=== PATIENT | female | born 1990 ===

== ENCOUNTER 2017-06-17 17:17 | Emergency (ER) | payer OTHER ==
[2017-06-17 19:44] LABS: Hematocrit 39 % (35-47); Hemoglobin 13.2 g/dl (12.0-16.0); Mean Corpuscular HGB Conc 34 g/dl (31-36); Mean Corpuscular Hemoglobin 28 pg (27-31); Mean Corpuscular Volume 84 fL (80-97); Mean Platelet Volume 9 um3 (7.4-10.4); Red Blood Count 4.64 10^6/ul (4.0-5.4); Red Cell Distribution Width 13 % (10.5-15); White Blood Count 8.3 10^3/ul (3.5-10.8)
[2017-06-17 20:01] LABS: Albumin 4.4 g/dL (3.2-5.2); BUN/Creatinine Ratio 25.4 (8-20); C Reactive Protein 1.13 mg/L (< 5.00); Calcium 9.6 mg/dL (8.6-10.3); EGFR African American 145.8 (>60); EGFR Non-African American 113.4 (>60); Globulin 3.5 g/dL (2-4); Magnesium 2.3 mg/dL (1.9-2.7); Potassium 3.7 mmol/L (3.5-5.0); Total Bilirubin 0.2 mg/dL (0.2-1.0); Total Protein 7.9 g/dL (6.4-8.9)
[2017-06-17 20:22] LABS: TSH (Thyroid Stimulating Horm) 2.24 mcIU/mL (0.34-5.60)
[2017-06-17] MEDS ORDERED: Ketorolac INJ* 60 MG/2 ML VIAL IM ONE (20:27)
[2017-06-17] MEDS ORDERED: Ketorolac INJ* 30 MG/ML 1 ML VIAL IV PUSH ONE (20:50)
[2017-06-17 20:53] LABS: Manual Entry Verification ABI0007; Mono Internal Control QC Line Present
[2017-06-17 21:01] LABS: Urine Bacteria 1+ (Absent); Urine Bilirubin Negative (Negative); Urine Glucose Negative (Negative); Urine Nitrite Negative (Negative)
--- NOTE | 2017-06-17 21:02 | ED ---
Complex/Multi-Sys Presentation - HPI Summary HPI Summary: Pt here w/ multiple sx. She came in tonight for acute wrist pain that she woke with this morning - Rt > Lt. Worse w/ flexion. Denies numbness, tingling, weakness. Tried 400mg ibuprofen w/o relief. 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 Denies arm pain but does have shoulder, neck, headaches at times. H/o tension SINHA's. Reports she's had new SINHA's this week though- Rt sided sharp pain after exercise (not during). NO HEADACHE AT THIS TIME. She has changed her workout routine - going later at night now - uses eliptical machine and arm extension (pulling and pushing). Eating later at night as well. Has 12oz caffeine daily - sometimes more. Denies ETOH use and no recent dehydration (ie. fever, sweating, diarrhea, vomiting). No tobacco or drug use. Admits to a h/o anemia as she's vegetarian. Reports progressive SOB as well (mild). Denies chest pain, nausea, difficulty eating or swallowing, dysuria, flank pain, vaginal pain/irritation. Denies URI sx. - History Of Current Complaint Chief Complaint: EDExtremityUpper Time Seen by Provider: 06/17/17 17:59 Hx Obtained From: Patient - Allergies/Home Medications Allergies/Adverse Reactions: Allergies Allergy/AdvReac Type Severity Reaction Status Date / Time No Known Allergies Allergy Verified 06/17/17 17:39 PMH/Surg Hx/FS Hx/Imm Hx Previously Healthy: Yes Endocrine/Hematology History: Reports: Hx Anemia Denies: Hx Anticoagulant Therapy, Hx Blood Disorders, Hx Diabetes, Hx Thyroid Disease, Autoimmune Disease Cardiovascular History: Denies: Hx Aneurysm, Hx Congenital Heart Disease, Hx Deep Vein Thrombosis, Hx Embolism, Hx Hypotension, Hx Hypertension, Hx Myocardial Infarction, Hx Valvular Heart Disease Respiratory History: Denies: Hx Asthma GI History: Denies: Hx Gastroesophageal Reflux Disease History: Denies: Hx Kidney Infection, Hx Kidney Stones Musculoskeletal History: Reports: Other Musculoskeletal History - h/o tension SINHA 's Infectious Disease History: No Infectious Disease History: Denies: Traveled Outside the [place] in Last 30 Days - Family History Known Family History: Positive: Cardiac Disease - brain tumor - female family member in 50's - Social History Occupation: Student Alcohol Use: None Hx Substance Use: No Substance Use Type: Reports: None Hx Tobacco Use: No Smoking Status (MU): Never Smoked Tobacco Review of Systems Positive: Fatigue - past 1 week Eyes: Negative Negative: Photophobia, Blurred Vision, Diplopia, Drainage, Erythema ENT: Negative Negative: Dental Pain, Sore Throat, Ear Ache, Nasal Discharge Cardiovascular: Negative Negative: Palpitations, Chest Pain Positive: Shortness Of Breath - see HPI. Negative: Cough Gastrointestinal: Negative Negative: Abdominal Pain, Vomiting, Diarrhea, Nausea Genitourinary: Negative Musculoskeletal: Other - see HPI Skin: Negative Neurological: Other - see HPI Negative: Weakness, Paresthesia, Numbness, Syncope, Slurred Speech Positive: Anxious All Other Systems Reviewed And Are Negative: Yes Physical Exam Triage Information Reviewed: Yes Vital Signs On Initial Exam: Initial Vitals Temp Pulse Resp BP Pulse Ox 98.9 F 80 18 123/69 100 06/17/17 17:21 06/17/17 17:21 06/17/17 17:21 06/17/17 17:21 06/17/17 17:21 Vital Signs Reviewed: Yes Appearance: Positive: Well-Appearing, No Pain Distress, Well-Nourished Skin: Positive: Warm, Dry - No ecchymosis observed Head/Face: Positive: Normal Head/Face Inspection - NTTP Eyes: Positive: Normal, EOMI, JESSICA, Conjunctiva Clear. Negative: Conjunctiva Inflammed, Discharge ENT: Positive: Normal ENT inspection, Hearing grossly normal, Pharynx normal, TMs normal. Negative: Pharyngeal erythema, Nasal congestion, Nasal drainage, Tonsillar swelling, Tonsillar exudate, Trismus, Muffled/hoarse voice Dental: Negative: Abscess @ Neck: Positive: Supple, No Lymphadenopathy, Tenderness @ - B/L traps w/ hypertonic mm - palpation recreates SINHA Respiratory/Lung Sounds: Positive: Clear to Auscultation, Breath Sounds Present. Negative: Rales, Rhonchi, Stridor, Wheezes Cardiovascular: Positive: Normal, RRR, Pulses are Symmetrical in both Upper and Lower Extremities, S1, S2. Negative: Murmur, Rub, Leg Edema Left, Leg Edema Right Abdomen Description: Positive: Nontender, No Organomegaly, Soft Bowel Sounds: Positive: Present Musculoskeletal: Positive: Strength/ROM Intact, Pain @ - Rt wrist TTP w/ Tinel' s however does not elicit tingling, numbness or shooting pain into hand - radiates pain into base of thumb; she is unable to complete Phalen's test d/t pain w/ flexion- in the limited position she moved into, she denies paresthesias ; negative Tinel's of ulnar nn B/L and Lt median n; no obvious thenar eminence atrophy observed however pt is slender in general Neurological: Positive: Normal, Sensory/Motor Intact, Alert, Oriented to Person Place, Time, CN Intact II-III, Normal Gait, Facial Symmetry, Speech Normal. Negative: Pronator Drift Present Psychiatric: Positive: Anxious Diagnostics - Vital Signs Vital Signs Temp Pulse Resp BP Pulse Ox 06/17/17 17:27 98.9 F 80 18 123/69 100 06/17/17 17:21 98.9 F 80 18 123/69 100 - Laboratory Lab Results: Lab Results 06/17/17 06/17/17 06/17/17 Range/Units 19:35 19:35 19:35 WBC 8.3 (3.5-10.8) 10^3/ul RBC 4.64 (4.0-5.4) 10^6/ul Hgb 13.2 (12.0-16.0) g/dl Hct 39 (35-47) % MCV 84 (80-97) fL MCH 28 (27-31) pg MCHC 34 (31-36) g/dl RDW 13 (10.5-15) % Plt Count 285 (150-450) 10^3/ul MPV 9 (7.4-10.4) um3 Neut % (Auto) 57.2 (38-83) % Lymph % (Auto) 34.8 (25-47) % Mcmullen % (Auto) 6.2 (1-9) % Eos % (Auto) 1.1 (0-6) % Baso % (Auto) 0.7 (0-2) % Absolute Neuts (auto) 4.7 (1.5-7.7) 10^3/ul Absolute Lymphs (auto) 2.9 (1.0-4.8) 10^3/ul Absolute Monos (auto) 0.5 (0-0.8) 10^3/ul Absolute Eos (auto) 0.1 (0-0.6) 10^3/ul Absolute Basos (auto) 0.1 (0-0.2) 10^3/ul Absolute Nucleated RBC 0 10^3/ul Nucleated RBC % 0.1 D-Dimer, Quantitative < 200 (Less Than 230) ng/mL Sodium 134 (133-145) mmol/L Potassium 3.7 (3.5-5.0) mmol/L Chloride 105 (101-111) mmol/L Carbon Dioxide 27 (22-32) mmol/L Anion Gap 2 (2-11) mmol/L BUN 16 (6-24) mg/dL Creatinine 0.63 (0.51-0.95) mg/dL Est GFR ( Amer) 145.8 (>60) Est GFR (Non-Af Amer) 113.4 (>60) BUN/Creatinine Ratio 25.4 H (8-20) Glucose 104 H (70-100) mg/dL Lactic Acid (0.5-2.0) mmol/L Calcium 9.6 (8.6-10.3) mg/dL Magnesium 2.3 (1.9-2.7) mg/dL Iron 99 (50-212) ug/dL TIBC 486 H (250-450) mcg/dL % Saturation 20 (15-55) % Unsat Iron Binding 387 ug/dL Total Bilirubin 0.20 (0.2-1.0) mg/dL AST 22 (13-39) U/L ALT 17 (7-52) U/L Alkaline Phosphatase 72 (34-104) U/L C-Reactive Protein 1.13 (< 5.00) mg/L Total Protein 7.9 (6.4-8.9) g/dL Albumin 4.4 (3.2-5.2) g/dL Globulin 3.5 (2-4) g/dL Albumin/Globulin Ratio 1.3 (1-3) Vitamin B12 265 (180-914) pg/mL TSH 2.24 (0.34-5.60) mcIU/mL Monoscreen Negative (Negative) 06/17/17 Range/Units 19:35 WBC (3.5-10.8) 10^3/ul RBC (4.0-5.4) 10^6/ul Hgb (12.0-16.0) g/dl Hct (35-47) % MCV (80-97) fL MCH (27-31) pg MCHC (31-36) g/dl RDW (10.5-15) % Plt Count (150-450) 10^3/ul MPV (7.4-10.4) um3 Neut % (Auto) (38-83) % Lymph % (Auto) (25-47) % Mcmullen % (Auto) (1-9) % Eos % (Auto) (0-6) % Baso % (Auto) (0-2) % Absolute Neuts (auto) (1.5-7.7) 10^3/ul Absolute Lymphs (auto) (1.0-4.8) 10^3/ul Absolute Monos (auto) (0-0.8) 10^3/ul Absolute Eos (auto) (0-0.6) 10^3/ul Absolute Basos (auto) (0-0.2) 10^3/ul Absolute Nucleated RBC 10^3/ul Nucleated RBC % D-Dimer, Quantitative (Less Than 230) ng/mL Sodium (133-145) mmol/L Potassium (3.5-5.0) mmol/L Chloride (101-111) mmol/L Carbon Dioxide (22-32) mmol/L Anion Gap (2-11) mmol/L BUN (6-24) mg/dL Creatinine (0.51-0.95) mg/dL Est GFR ( Amer) (>60) Est GFR (Non-Af Amer) (>60) BUN/Creatinine Ratio (8-20) Glucose (70-100) mg/dL Lactic Acid 1.0 (0.5-2.0) mmol/L Calcium (8.6-10.3) mg/dL Magnesium (1.9-2.7) mg/dL Iron (50-212) ug/dL TIBC (250-450) mcg/dL % Saturation (15-55) % Unsat Iron Binding ug/dL Total Bilirubin (0.2-1.0) mg/dL AST (13-39) U/L ALT (7-52) U/L Alkaline Phosphatase (34-104) U/L C-Reactive Protein (< 5.00) mg/L Total Protein (6.4-8.9) g/dL Albumin (3.2-5.2) g/dL Globulin (2-4) g/dL Albumin/Globulin Ratio (1-3) Vitamin B12 (180-914) pg/mL TSH (0.34-5.60) mcIU/mL Monoscreen (Negative) Result Diagrams: 06/17/17 19:35 06/17/17 19:35 Lab Statement: Any lab studies that have been ordered have been reviewed, and results considered in the medical decision making process. Complex Multi-Symp Course/Dx Course Of Treatment: Pt presents w/ B/L wrist pain Rt > Lt, shoulder tension and SINHA. She was initially dx'd as tendonitis w/ exacerbation of tension SINHA ( although not present now). Further w/u was initiated when she shared she's been having fatigue and SOB at times. Her labs appear negative for PE, mono, dehydration or severe anemia but she may have some chronic Fe def anemia and B12 is lower end of normal. Recommend NSAID's and stretching for wrist and headache pains - may benefit from PT which she will do through [facility]. She may also start taking supplements to aid in her vitamin deficiencies most likely d/t lack of intake through diet as she's vegetarian. Her U/A is weak for possible UTI - will await cx's for definitive dx and tx as she's asx today. Reviewed danger s/sx of when to return to ED. - Diagnoses Provider Diagnoses: Left wrist tendonitis, Right wrist tendonitis, Tension headache, Anemia Discharge - Discharge Plan Condition: Stable Disposition: HOME Patient Education Materials: Tendinitis (ED), Tension Headache (ED), Iron Deficiency Anemia (ED), Iron Rich Diet (ED), Vitamin B12 Deficiency (ED) Referrals: Malika Morris NP [Primary Care Provider] - Additional Instructions: You appear to have tendonitis of your upper extremities - this is most likely causing your worse than usual tension headaches. Stretch throughout the day to help alleviate tension. You may also stay hydrated and avoid excess caffeine. Follow-up with [facility] for referral to PT. You also appear to have mild anemia of your iron and B12. You may increase dietary intake as well as consider supplementation. F/u w/ PCP for recheck. Furthermore, you urine collection has some signs of possible urinary tract infection. If this is in fact positive on culture in 2 days, we will call and place you on antibiotics. *If you develop worse headache, change in vision, neck stiffness, fever, chills , vomiting, weakness, shortness of breath, chest pain, syncope, return to ED
[2017-06-17 22:14] VITALS: BP 104/68
== END 2017-06-17 22:13 | disposition home or self-care (01) ==
LOC: ED 17:17
DX: M77.9 Enthesopathy, unspecified (principal); G44.209 Tension-type headache, unspecified, not intractable; D64.9 Anemia, unspecified
CPT/HCPCS: 36415; 80053; 81003; 81015; 82607; 83540; 83550; 83605; 83735; 84443; 85025; 85379; 86140; 86308; 87086; 96374; 96376; 99282; J1885

== ENCOUNTER 2017-10-18 08:52 | Emergency (ER) | payer OTHER ==
[2017-10-18 09:09] VITALS: BP 109/66
--- NOTE | 2017-10-18 10:03 | UC ---
Abdominal Pain Female HPI - HPI Summary HPI Summary: Pt presents with epigastric pain and dark stools. She tells me that 2 days ago she developed epigastric pain, nausea, and lower abdominal cramping. She does have a history of gastric/duodenal ulcers that spontaneously resolved - per pt. She has not vomited and is still eating as usual. The pain is unchanged with food or bowel movement. She also complains of vaginal discharge that began 3-4 days. She is currently on Keflex for an infected ear piercing, but has not taken that in 2 days due to this pain and dark stools. She denies fever, chills , SOB, chest pain, V/D/C, rectal pain, headache, dizziness, weakness, dysuria, hematuria, flank pain, or recent illness. - History of Current Complaint Chief Complaint: UCAbdominalPain Stated Complaint: ABD PAIN Time Seen by Provider: 10/18/17 10:01 Hx Obtained From: Patient Hx Last Menstrual Period: 10/03/17 Onset/Duration: Gradual Onset Timing: Constant Severity Initially: Mild Severity Currently: Moderate Pain Intensity: 7 Pain Scale Used: 0-10 Numeric Location: Epigastric, Suprapubic Radiates: No Character: Aching, Burning, Sharp Allergies/Adverse Reactions: Allergies Allergy/AdvReac Type Severity Reaction Status Date / Time No Known Allergies Allergy Verified 10/18/17 15:40 Home Medications: Home Medications Cephalexin CAP* [Keflex CAP*] 500 mg PO TID 10/18/17 [History Confirmed 10/18/17 ] Multiple Vitamin [Multivitamins] 1 cap PO DAILY 10/18/17 [History Confirmed ] PMH/Surg Hx/FS Hx/Imm Hx Other History Of: Negative For: Anticoagulant Therapy - Surgical History Surgical History: None - Family History Known Family History: Positive: Cardiac Disease - brain tumor - female family member in 50's - Social History Alcohol Use: None Substance Use Type: None Smoking Status (MU): Never Smoked Tobacco Review of Systems Constitutional: Negative Skin: Negative Eyes: Negative ENT: Negative Respiratory: Negative Cardiovascular: Negative Gastrointestinal: Abdominal Pain, Nausea, Other - Dark stools Genitourinary: Vaginal/Penile Discharge Neurovascular: Negative Musculoskeletal: Negative Neurological: Negative Psychological: Negative All Other Systems Reviewed And Are Negative: Yes Physical Exam Triage Information Reviewed: Yes Appearance: Well-Appearing, No Pain Distress, Well-Nourished Vital Signs: Initial Vital Signs Temp 97.9 F 10/18/17 09:04 Pulse 77 10/18/17 09:04 Resp 16 10/18/17 09:04 BP 109/66 10/18/17 09:04 Pulse Ox 98 10/18/17 09:04 Vital Signs Reviewed: Yes Eyes: Positive: Conjunctiva Clear. Negative: Conjunctiva Inflamed, Discharge ENT: Positive: Hearing grossly normal, Pharynx normal, TMs normal, Uvula midline. Negative: Pharyngeal erythema, Nasal congestion, Nasal drainage, TM bulging, TM dull, TM red, Tonsillar swelling, Tonsillar exudate, Sinus tenderness Neck: Positive: Supple, Nontender, No Lymphadenopathy Respiratory: Positive: Chest non-tender, Lungs clear, Normal breath sounds, No respiratory distress, No accessory muscle use Cardiovascular: Positive: RRR, No Murmur, Pulses Normal, Brisk Capillary Refill Abdomen Description: Positive: No Organomegaly, Soft, Other: - TTP epigastric region. TTP LLQ and RLQ.. Negative: CVA Tenderness (R), CVA Tenderness (L), Distended, Guarding, Hepatomegaly, Peritoneal Signs, Pulsatile Mass, Splenomegaly Bowel Sounds: Positive: Present Musculoskeletal: Positive: Strength Intact, ROM Intact, No Edema Neurological: Positive: Alert Psychological: Positive: Age Appropriate Behavior Skin: Positive: Other - No ecchymosis or skin lesions.. Negative: rashes Abd Pain Female Course/Dx - Course Course Of Treatment: Her POC urine was negative. I informed the patient that I would need to conduct a vaginal exam and rectal exam for her complaints today - at first she declined both, but later decided to proceed with the vaginal exam only. She tells me she has never had sexual intercourse or had a vaginal exam performed. The vaginal exam was assisted with [facility] - upon initial insertion of the speculum, pt experienced significant pain and asked to stop the exam. The exam was immediately stopped and she refused a rectal exam. Based on her history and very limited exam that I was able to obtain today - I strongly advised her to seek medical attention in the ED. She said that she is leaving for [facility] tomorrow and will go to the ED when she returns. We had a long discussion that my leading suspicion as this time is a GI ulcer, but without further testing, it was very difficult to know for certain or to ascertain as to the severity of her condition. I warned her that potential risks include, but are not limited to; perforation, infection, sepsis, anemia, syncope, and/or . She verbalized understanding and agreed that if her symptoms worsen before she goes to the ED next week, she will seek medical attention. She signed out AMA. - Differential Dx/Diagnosis Differential Diagnosis: Appendicitis, Bowel Obstruction, Diverticulitis, Gall Bladder Disease, Hepatitis, Irritable Bowel Syndrome, Ovarian Cyst, Pelvic Inflammatory Disease, Peptic Ulcer Disease Provider Diagnoses: Epigastric pain. LLQ pain. RLQ pain. Black/dark stools. Vaginal discharge Discharge - Discharge Plan Condition: Stable Disposition: AGAINST MEDICAL ADVICE Referrals: Malika Morris NP [Primary Care Provider] - Additional Instructions: Pt was advised to go to ED by ambulance or private vehicle - she refused both and signed out AMA.
== END 2017-10-18 10:58 | disposition left against medical advice (07) ==
LOC: UCEAST 08:52
DX: R10.13 Epigastric pain (principal); R10.31 Right lower quadrant pain; R10.32 Left lower quadrant pain; R19.5 Other fecal abnormalities; N89.8 Other specified noninflammatory disorders of vagina; R11.0 Nausea
CPT/HCPCS: 81003; 81025; 99212; G0463

== ENCOUNTER 2017-10-18 15:31 | Emergency (ER) | payer OTHER ==
[2017-10-18] MEDS ORDERED: NS 0.9% 1000 ML* 1,000 ML IV ONE (17:43)
[2017-10-18] MEDS ORDERED: Ketorolac INJ* 30 MG/ML 1 ML VIAL IV PUSH ONE (17:50)
[2017-10-18] MEDS ORDERED: Pantoprazole IV* 40 MG IV ONE (17:51)
[2017-10-18] MEDS ORDERED: Ondansetron INJ* 2 MG/ML VIAL IV ONE (17:52)
--- NOTE | 2017-10-18 18:01 | ED ---
Abdominal Pain/Female - HPI Summary HPI Summary: 27F presents with abdominal pain for two days. She states that it feels similar to the times she has had gastroenteritis and an ulcer. She states her ulcer self resolved. She admits to nausea but denies vomiting. She admits to some episodes of diarrhea and some dark tarry stool. She states her pain started after she went out to eat. no one else is sick. She denies any dysuria , hemaurtia, urgency, or frequency. She states pain is greatest in epigastric and lower quadrants. She was on Keflex a couple days ago for a ear infection but has not taken it in two days. She admits to vaginal discharge but denies any itching or foul smelling discharge. - History of Current Complaint Chief Complaint: EDAbdPain Stated Complaint: ABD PAIN Time Seen by Provider: 10/18/17 17:31 Hx Last Menstrual Period: 10/03/17 Pain Intensity: 1 Allergies/Adverse Reactions: Allergies Allergy/AdvReac Type Severity Reaction Status Date / Time No Known Allergies Allergy Verified 10/18/17 15:40 PMH/Surg Hx/FS Hx/Imm Hx Endocrine/Hematology History: Reports: Hx Anemia Denies: Hx Anticoagulant Therapy, Hx Blood Disorders, Hx Diabetes, Hx Thyroid Disease Cardiovascular History: Denies: Hx Aneurysm, Hx Congenital Heart Disease, Hx Deep Vein Thrombosis, Hx Embolism, Hx Hypotension, Hx Hypertension, Hx Myocardial Infarction, Hx Valvular Heart Disease Respiratory History: Denies: Hx Asthma GI History: Denies: Hx Gastroesophageal Reflux Disease History: Denies: Hx Kidney Infection, Hx Kidney Stones Musculoskeletal History: Reports: Other Musculoskeletal History - h/o tension SINHA 's - Immunization History Date of Influenza Vaccine: 08/06 Immunizations Up to Date: Yes Infectious Disease History: No Infectious Disease History: Reports: Hx Shingles Denies: Traveled Outside the [place] in Last 30 Days - Family History Known Family History: Positive: Cardiac Disease - brain tumor - female family member in 50's - Social History Alcohol Use: None Hx Substance Use: No Substance Use Type: Reports: None Hx Tobacco Use: No Smoking Status (MU): Never Smoked Tobacco Review of Systems Negative: Fever Negative: Chest Pain Negative: Shortness Of Breath Positive: Abdominal Pain, Nausea All Other Systems Reviewed And Are Negative: Yes Physical Exam Triage Information Reviewed: Yes Vital Signs On Initial Exam: Initial Vitals Temp Pulse Resp BP Pulse Ox 98.1 F 82 16 100/75 100 10/18/17 15:40 10/18/17 15:40 10/18/17 15:40 10/18/17 15:40 10/18/17 15:40 Vital Signs Reviewed: Yes Appearance: Positive: Well-Appearing Skin: Positive: Warm, Dry Head/Face: Positive: Normal Head/Face Inspection Eyes: Positive: Normal, EOMI, JESSICA, Conjunctiva Clear ENT: Positive: Normal ENT inspection, Pharynx normal, TMs normal Respiratory/Lung Sounds: Positive: Clear to Auscultation, Breath Sounds Present Cardiovascular: Positive: Normal, RRR Abdomen Description: Positive: Soft, Other: - diffuse tenderness greatest in epigastric region, no rebound, Bowel Sounds: Positive: Present - Igo Coma Scale Coma Scale Total: 14 Diagnostics - Vital Signs Vital Signs Temp Pulse Resp BP Pulse Ox 10/18/17 16:50 98.3 F 98 16 102/68 100 10/18/17 15:40 98.1 F 82 16 100/75 100 - Laboratory Result Diagrams: 10/18/17 18:37 10/18/17 18:37 Lab Statement: Any lab studies that have been ordered have been reviewed, and results considered in the medical decision making process. - CT abd CT Interpretation: No Acute Changes CT Interpretation Completed By: Radiologist - Ultrasound No standard instances Ultrasound Interpretation: No Acute Changes Ultrasound Interpretation Completed By: Radiologist Abdominal Pain Fem Course/Dx - Course Course Of Treatment: 27F presents with abdominal pain for two days. She states that it feels similar to the times she has had gastroenteritis and an ulcer. She states her ulcer self resolved. She admits to nausea but denies vomiting. She admits to some episodes of diarrhea and some dark tarry stool. She states her pain started after she went out to eat. no one else is sick. She denies any dysuria, hemaurtia, urgency, or frequency. She states pain is greatest in epigastric and lower quadrants. She was on Keflex a couple days ago for a ear infection but has not taken it in two days. She admits to vaginal discharge but denies any itching or foul smelling discharge. on exam tenderness diffusely but greatest in epigastric. gallbladder u/s neg. occult blood neg. patient declined vaginal exam. CT normal. will try omperazole as could be gastroenteritis vs ulcer. told if no improvement in a week to follow up with GI. patient understand and agrees with plan. - Diagnoses Differential Diagnosis: Positive: Appendicitis, Gall Bladder Disease, Peptic Ulcer Disease, Urinary Tract Infection Provider Diagnoses: Abdominal pain Discharge - Discharge Plan Condition: Good Disposition: HOME Prescriptions: Omeprazole CAP* [Prilosec CAP* 20 MG] 20 mg PO DAILY #14 cap.dr Ondansetron ODT TAB* [Zofran 4 MG Odt TAB*] 4 mg PO Q6H PRN #16 tab.odt PRN Reason: Nausea Patient Education Materials: Diet for Stomach Ulcers and Gastritis (ED), Abdominal Pain (ED) Referrals: Zana Colbert MD [Medical Doctor] - Malika Morris NP [Primary Care Provider] - Additional Instructions: As have potential for ulcer will have take omeprazole once a day in the morning for next 2 weeks Follow up with GI if no improvement in a week Can take Zofran every 6 hours as needed for nausea Drink small amounts of fluid as tolerated When able to eat follow BRAT diet: Bananas, rice, applesauce, toast Take ibuprofen or Tylenol for pain as needed every 6 hours Return to ED if develop any new or worsening symptoms
--- NOTE | 2017-10-18 18:22 | RAD ---
INDICATION: Epigastric pain. COMPARISON: There are no prior studies available for comparison. TECHNIQUE: Multiple real-time images of the right upper quadrant were obtained. FINDINGS: The gallbladder appear normal. No gallbladder wall thickening or pericholecystic fluid is present. No intra or extrahepatic ductal distention is present. The common bile duct measured 0.5 cm in diameter. The liver is normal in size without significant focal abnormality. The pancreas is obscured by overlying bowel gas. The right kidney is normal in size without evidence for hydronephrosis. IMPRESSION: NEGATIVE EXAM.
[2017-10-18 18:55] LABS: ABS Basophils 0.1 10^3/ul (0-0.2); ABS Eosinophils 0.1 10^3/ul (0-0.6); ABS Lymphocytes 2.7 10^3/ul (1.0-4.8); ABS Monocytes 0.7 10^3/ul (0-0.8); ABS Neutrophils 6.2 10^3/ul (1.5-7.7); ABS Nucleated RBC 0 10^3/ul; Eosinophil % 1.1 % (0-6); Hematocrit 39 % (35-47); Hemoglobin 12.8 g/dl (12.0-16.0); Lymphocyte % 27.9 % (25-47); Mean Corpuscular HGB Conc 33 g/dl (31-36); Mean Corpuscular Hemoglobin 27 pg (27-31); Mean Corpuscular Volume 82 fL (80-97); Mean Platelet Volume 9 um3 (7.4-10.4); Nucleated Red Blood Cells % 0; Platelet Count 284 10^3/ul (150-450); Red Blood Count 4.77 10^6/ul (4.0-5.4); Red Cell Distribution Width 13 % (10.5-15); White Blood Count 9.8 10^3/ul (3.5-10.8)
[2017-10-18 19:10] LABS: EGFR Non-African American 97.2 (>60)
[2017-10-18] MEDS ORDERED: Iohexol 300* (CONTRAST) 10 ML SDV IV ONE (20:41)
[2017-10-18 20:45] LABS: Urine Appearance Cloudy; Urine Blood Negative (Negative); Urine Color Straw; Urine Ketones Negative (Negative); Urine Protein Negative (Negative); Urine Specific Gravity 1.009 (1.010-1.030); Urine Urobilinogen Negative (Negative)
--- NOTE | 2017-10-18 20:59 | RAD ---
INDICATION: Epigastric pain, dark stool. COMPARISON: Comparison is made with a prior right upper quadrant ultrasound from October 18, 2017. TECHNIQUE: A CT scan of the abdomen and pelvis was performed with intravenous and oral contrast following intravenous injection of 85 ml of Omnipaque 300 nonionic contrast. Contiguous axial sections were obtained from the lung bases through the symphysis pubis. Images were reconstructed in the coronal and sagittal planes. FINDINGS: There is mild dependent bilateral lower lobe subsegmental atelectasis. No pleural effusion is present. The liver and spleen are within normal limits in size without significant focal abnormality. No calcified gallstones are seen. The pancreas appears to be within normal limits in size. The kidneys and adrenal glands are normal in size. No hydronephrosis is seen. No significant focal renal abnormality is seen. The aorta is normal in caliber and demonstrates homogeneous contrast opacification. No significant enlarged retroperitoneal lymph nodes are seen. The stomach, small and large bowel appear nondistended. The appendix is within normal limits. There is mild descending and sigmoid diverticulosis without evidence for diverticulitis or colitis. The uterus is retroverted and normal in size. No free intraperitoneal air is seen. There is a trace amount of free intraperitoneal fluid in the cul-de-sac.. No significant focal osseous abnormality is seen. IMPRESSION: NO EVIDENCE FOR ACUTE INTRA-ABDOMINAL ABNORMALITY OR CAUSE FOR THE PATIENT'S ABDOMINAL PAIN IS SEEN.
[2017-10-18 22:05] VITALS: BP 00/00
== END 2017-10-18 22:04 | disposition home or self-care (01) ==
LOC: ED 15:31
DX: R10.816 Epigastric abdominal tenderness (principal)
CPT/HCPCS: 36415; 74177; 76705; 80053; 81003; 82272; 83690; 84702; 85025; 86141; 96361; 96374; 96375; 99283; J1885; J2405; Q9967